=== PATIENT | male | born 1945 | race African-American/Black ===

== ENCOUNTER 2018-05-11 17:14 | Inpatient (IN) ==
[2018-05-11 18:43] LABS: Basophils % 0.5 % (0.0-0.8); Eosinophils % 0.8 % (0.00-10.9); Hematocrit 36.3 VOL% (42.0-52.0); Hemoglobin 11.5 GM/DL (14.0-18.0); Immature Granulocytes % 0.3 %; Immature Granulocytes Absolute 0.01 #; Lymphocytes # 1.1 10*3/uL (1.4-4.0); Mean Corpuscular HGB Conc 31.7 GM/DL (32-36); Mean Corpuscular Hemoglobin 29 PG (27-34); Mean Corpuscular Volume 92.4 FL (87-102); Mean Platelet Volume 9.9 FL (9.6-12.0); Monocytes # 0.8 10*3/uL (0.11-0.8); Monocytes % 22.2 % (1.7-12.7); Neutrophils # 1.7 10*3/uL (1.4-7.4); Neutrophils % 47.2 % (38.7-73.9); Platelet Count 190 T/CUMM (130-400); Red Blood Count 3.93 MC/CUMM (3.8-5.5); Red Cell Distribution Width 12.2 % (9.3-17.3); White Blood Count 3.7 T/CUMM (4-12)
[2018-05-11] MEDS ORDERED: KETOROLAC 30 MG/1 ML VIAL IV STA (18:56)
[2018-05-11] MEDS ORDERED: MORPHINE 4 MG/1 ML VIAL IV STA (18:56)
[2018-05-11] MEDS ORDERED: ONDANSETRON 4 MG/2 ML VIAL IV STA (18:56)
[2018-05-11 19:10] LABS: Albumin 3.2 G/DL (3.4-5.0); Bilirubin,Total 0.5 MG/DL (0.2-1.0); Calcium 8.9 MG/DL (8.5-10.1); Osmolality,Calculated 281.5 MOS/KG (273-304); Potassium 4.2 MMOL/L (3.5-5.1); Total Protein 8.4 G/DL (6.4-8.3)
[2018-05-11 19:36] LABS: Apearance,Urine Slightly Hazy (Clear); Bilirubin,Urine Negative (Negative); Blood, Urine Small mg/dL (Negative); Glucose,Urine (UA) Negative (Negative); Hyaline Casts,Urine 9 /LPF (0-3); Ketones,Urine 5 mg/dL (Negative); Mucus,Urine Occasional /LPF (Occasional); Nitrite,Urine Negative (Negative); Protein,Urine 30 MG/DL; RBC,Urine 15 /HPF (0-4); Squamous Epithelial Cell,Urine Occasional /HPF (0-10); Urine Color Yellow (Yellow); Urine Specific Gravity 1.021 (1.001-1.035); WBC,Urine 120 /HPF (0-6)
[2018-05-11] MEDS ORDERED: cefTRIAXone 1,000 MG in SODIUM CHLORIDE 0.9% 100 ML IV STA (20:30)
[2018-05-11] MEDS ORDERED: AZITHROMYCIN 250 MG TABLET PO STA (20:30)
[2018-05-11] MEDS ORDERED: hydrALAZINE 20 MG/1 ML VIAL IV STA (20:30)
[2018-05-11] MEDS ORDERED: ONDANSETRON 4 MG/2 ML VIAL IV PRN (21:52)
[2018-05-11] MEDS ORDERED: ACETAMINOPHEN 325 MG TABLET PO PRN (21:52)
[2018-05-11] MEDS ORDERED: DOCUSATE SODIUM 100 MG CAPSULE PO PRN (21:52)
[2018-05-11] MEDS ORDERED: ZALEPLON 5 MG CAPSULE PO PRN (21:52)
[2018-05-11] MEDS ORDERED: MORPHINE 4 MG/1 ML VIAL IV PRN (21:52)
[2018-05-11] MEDS ORDERED: LEVOFLOXACIN INJ 750 MG in PREMIX 1 EACH IV SCH (22:00)
[2018-05-11] MEDS ORDERED: ALBUTEROL/IPRATROPIUM 3 ML NEB RESP TX PRN (22:00)
[2018-05-11] MEDS: CARVEDILOL 25 MG TABLET PO SCH (22:42)
[2018-05-11] MEDS: SODIUM CHLORIDE 0.9% 1,000 ML IV SCH (22:43)
[2018-05-11] MEDS: ENOXAPARIN 40 MG/0.4 ML SYRINGE SUBCUT SCH (22:44)
[2018-05-12 00:26] LABS: Band Neutrophils 1 % (0-10); Lymphocytes 39 % (20-55); Segmented Neutrophils 40 % (50-85)
[2018-05-12 00:27] LABS: Platelet Estimate Adequate; Total Cells Counted 100
[2018-05-12 04:45] LABS: Basophils % 0.4 % (0.0-0.8); Eosinophils % 1.4 % (0.00-10.9); Hematocrit 34.7 VOL% (42.0-52.0); Hemoglobin 10.7 GM/DL (14.0-18.0); Immature Granulocytes % 0.4 %; Immature Granulocytes Absolute 0.01 #; Lymphocytes # 0.8 10*3/uL (1.4-4.0); Lymphocytes % 27.6 % (21.2-54.2); Mean Corpuscular HGB Conc 30.8 GM/DL (32-36); Mean Corpuscular Hemoglobin 28 PG (27-34); Mean Corpuscular Volume 91.8 FL (87-102); Mean Platelet Volume 10.1 FL (9.6-12.0); Monocytes # 0.6 10*3/uL (0.11-0.8); Monocytes % 20.8 % (1.7-12.7); Neutrophils # 1.4 10*3/uL (1.4-7.4); Neutrophils % 49.4 % (38.7-73.9); Platelet Count 171 T/CUMM (130-400); Red Blood Count 3.78 MC/CUMM (3.8-5.5); Red Cell Distribution Width 12.3 % (9.3-17.3); White Blood Count 2.8 T/CUMM (4-12)
[2018-05-12 05:11] LABS: Calcium 8.7 MG/DL (8.5-10.1); Osmolality,Calculated 282.4 MOS/KG (273-304); Potassium 3.7 MMOL/L (3.5-5.1)
[2018-05-12 06:04] LABS: Band Neutrophils 5 % (0-10); Eosinophils 1 % (0-10); Lymphocytes 31 % (20-55); Segmented Neutrophils 50 % (50-85); Total Cells Counted 100
[2018-05-12 06:05] LABS: Platelet Estimate Adequate
[2018-05-12] MEDS: LOSARTAN 50 MG TABLET PO SCH (08:43)
[2018-05-12] MEDS: CARVEDILOL 25 MG TABLET PO SCH ×2 (08:43→17:48)
[2018-05-12] MEDS: DONEPEZIL 5 MG TABLET PO SCH (08:43)
[2018-05-12] MEDS: CHOLECALCIFEROL 400 UNIT TABLET PO SCH (08:43)
[2018-05-12] MEDS: SODIUM CHLORIDE 0.9% 1,000 ML IV SCH (17:49)
[2018-05-12] MEDS: ENOXAPARIN 40 MG/0.4 ML SYRINGE SUBCUT SCH (20:36)
[2018-05-12] MEDS ORDERED: cefTRIAXone 1,000 MG in SYRINGE 1 EACH IV SCH (21:00)
[2018-05-13] MEDS: SODIUM CHLORIDE 0.9% 1,000 ML IV SCH (00:56)
[2018-05-13 04:31] LABS: Basophils % 0.4 % (0.0-0.8); Eosinophils % 0.8 % (0.00-10.9); Hematocrit 35.3 VOL% (42.0-52.0); Immature Granulocytes % 0.4 %; Immature Granulocytes Absolute 0.01 #; Lymphocytes # 0.8 10*3/uL (1.4-4.0); Lymphocytes % 29.6 % (21.2-54.2); Mean Corpuscular HGB Conc 31.2 GM/DL (32-36); Mean Corpuscular Hemoglobin 29 PG (27-34); Mean Corpuscular Volume 92.9 FL (87-102); Mean Platelet Volume 10.1 FL (9.6-12.0); Monocytes # 0.6 10*3/uL (0.11-0.8); Monocytes % 22.1 % (1.7-12.7); Neutrophils # 1.2 10*3/uL (1.4-7.4); Neutrophils % 46.7 % (38.7-73.9); Platelet Count 173 T/CUMM (130-400); Red Cell Distribution Width 12.3 % (9.3-17.3); White Blood Count 2.5 T/CUMM (4-12)
[2018-05-13 05:00] LABS: Calcium 8.7 MG/DL (8.5-10.1); Osmolality,Calculated 285.1 MOS/KG (273-304); Potassium 3.4 MMOL/L (3.5-5.1)
[2018-05-13 05:48] LABS: Band Neutrophils 1 % (0-10); Eosinophils 1 % (0-10); Lymphocytes 33 % (20-55); Segmented Neutrophils 50 % (50-85)
[2018-05-13 05:49] LABS: Platelet Estimate Normal; Total Cells Counted 100
[2018-05-13] MEDS ORDERED: POTASSIUM CHLORIDE 20 MEQ TABLET PO PRN (08:37)
[2018-05-13] MEDS: CHOLECALCIFEROL 400 UNIT TABLET PO SCH (09:27)
[2018-05-13] MEDS: LOSARTAN 50 MG TABLET PO SCH (09:27)
[2018-05-13] MEDS: CARVEDILOL 25 MG TABLET PO SCH (09:27)
[2018-05-13] MEDS: DONEPEZIL 5 MG TABLET PO SCH (09:27)
[2018-05-13 12:24] VITALS: BP 150/95
== END 2018-05-13 15:19 | disposition home or self-care (01) | DRG 690 ==
LOC: N.ED 17:14 → N.EDINP 21:50 → N.4E 22:15
PROVIDERS: ADMIT Internal Medicine; ATTEND Internal Medicine